=== PATIENT | male | born 1980 | race Caucasian/White ===

== ENCOUNTER 2021-06-06 07:55 | Emergency (ER) | payer BC ==
[2021-06-06] MEDS ORDERED: methylPREDNISolone Sodium Succinate 125 MG/2 ML SDV IM ONE (07:59)
[2021-06-06] MEDS ORDERED: EPINEPHrine 1 MG/ML SDV IM ONE (07:59)
[2021-06-06] MEDS ORDERED: diphenhydrAMINE 50 MG/ML SDV IM ONE (07:59)
--- NOTE | 2021-06-06 08:01 | EDM.PDOC ---
ED HPI GENERAL MEDICAL PROBLEM - General Chief Complaint: Bite:Animal, Insect Stated Complaint: BEE BITES Time Seen by Provider: 06/06/21 07:59 Source of Information: Reports: Patient, RN Notes Reviewed History Limitations: Reports: No Limitations - History of Present Illness INITIAL COMMENTS - FREE TEXT/NARRATIVE: 40-year-old gentleman presents emergency department today following a bee sting, he states he has had problems with bees in the past he did take a Claritin prior to coming to the emergency department he feels that he has developed a rash over his whole body and is quite itchy throat is okay and breathing is okay he has never used an EpiPen - Related Data Allergies Allergy/AdvReac Type Severity Reaction Status Date / Time No Known Allergies Allergy Verified 06/06/21 08:01 Home Meds: Home Meds NK [No Known Home Meds] 10/16/20 [History] Past Medical History Musculoskeletal History: Reports: Other (See Below) Other Musculoskeletal History: left shoulder pain - Past Surgical History Musculoskeletal Surgical History: Reports: Other (See Below) Other Musculoskeletal Surgeries/Procedures:: Rt foot Social & Family History - Tobacco Use Tobacco Use Status *Q: Never Tobacco User ED ROS GENERAL - Review of Systems Review Of Systems: See Below Constitutional: Reports: No Symptoms HEENT: Reports: No Symptoms Respiratory: Reports: No Symptoms Cardiovascular: Reports: No Symptoms Skin: Reports: Pruritis (Right this), Rash ED EXAM, ANIMAL BITE - Physical Exam Exam: See Below Exam Limited By: No Limitations General Appearance: Alert, Mild Distress Throat/Mouth: Normal Inspection, Normal Lips, Normal Teeth, Normal Gums, Normal Oropharynx, Normal Voice, No Airway Compromise Respiratory/Chest: No Respiratory Distress, Lungs Clear, Normal Breath Sounds, No Accessory Muscle Use, Chest Non-Tender Cardiovascular: Regular Rate, Rhythm, No Murmur Course - Vital Signs Last Recorded V/S: Last Vital Signs Temp 97.3 F 06/06/21 08:05 Pulse 95 06/06/21 08:05 Resp 16 06/06/21 08:05 BP 129/76 06/06/21 08:05 Pulse Ox 93 L 06/06/21 08:05 - Orders/Labs/Meds Meds: Medications Discontinued Medications Generic Name Dose Route Start Last Admin Trade Name Freq PRN Reason Stop Dose Admin Diphenhydramine HCl 50 mg 06/06/21 07:59 06/06/21 08:34 Diphenhydramine 50 Mg/Ml Sdv IM 06/06/21 08:00 50 mg ONETIME ONE Administration Epinephrine HCl 0.4 mg 06/06/21 07:59 06/06/21 07:55 Epinephrine 1 Mg/Ml Sdv IM 06/06/21 08:00 0.4 mg ONETIME ONE Administration Methylprednisolone Sodium Succinate 125 mg 06/06/21 07:59 06/06/21 08:35 Methylprednisolone Sodium Succinate 125 Mg/2 Ml Sdv IM 06/06/21 08:00 125 mg ONETIME ONE Administration Departure - Departure Time of Disposition: 08:38 Disposition: Home, Self-Care 01 Condition: Fair Clinical Impression: Allergic reaction to insect bite Wasp sting Qualifiers: Encounter type: initial encounter Injury intent: accidental or unintentional Qualified Code(s): T63.461A - Toxic effect of venom of wasps, accidental (unintentional), initial encounter - Discharge Information Instructions: Insect Bite, Adult, [id number], Bee, Wasp, or Hornet Sting, Adult Referrals: PCP,None [Primary Care Provider] - Forms: ED Department Discharge Additional Instructions: Benadryl is your best medication to combat symptoms of an allergic reaction, continue to use this if needed, follow-up with your primary care as needed Sepsis Event Note (ED) - Focused Exam Vital Signs: Vital Signs Temp Pulse Resp BP Pulse Ox 06/06/21 08:05 97.3 F 95 16 129/76 93 L 06/06/21 08:03 97.3 F 95 16 129/76 93 L - Assessment/Plan Plan: Assessment Acuity = acute Site and laterality = allergic reaction to wasp Etiology = wasp venom Manifestations = rash now resolved Location of injury = Home Lab values = none Plan Good relief combination Solu-Medrol, Benadryl and epinephrine, I talked about an epinephrine pen he declined talked him about observation for 4 hours due to the possibility of rebound he also declined plan is discharged home follow-up primary care as needed This note was dictated using [employer] voice recognition software please call with any questions on syntax or grammar.
== END 2021-06-06 08:45 | disposition home or self-care (01) ==
LOC: JP.ED 07:55
DX: T63.461A Toxic effect of venom of wasps, accidental (unintentional), initial encounter (principal)
CPT/HCPCS: 96372; 99282; J0171; J1200; J2930